=== PATIENT | female | born 1965 | race Hispanic/Latino ===

== ENCOUNTER 2017-03-20 07:39 | Day surgery (SDC) | payer OTHER ==
[2016-03-15 08:54] VITALS: BMI 28.3
[2017-03-20 08:04] VITALS: O2SAT 99
[2017-03-20] MEDS ORDERED: Propofol 10 mg/ml Inj (20 ML) ONE (08:36)
[2017-03-20] MEDS ORDERED: Ketamine 50 mg/ml Inj (10 ml) ONE (08:37)
[2017-03-20] MEDS ORDERED: Lactated Ringer's 500 ML IV SCH (08:45)
--- NOTE | 2017-03-20 08:45 | CP.SDSHP ---
Same Day Surgery H & P - History Proposed Procedure: colonoscopy Pre-Op Diagnosis: history of polyps - Allergies Allergies: Allergies No Known Allergies Allergy (Verified 03/15/16 08:53) - Physical Exam General Appearance: NAD Vital Signs: Vital Signs 03/20/17 03/20/17 07:57 08:26 Temperature 97.4 F L 97.4 F L Pulse Rate 64 64 Respiratory 19 19 Rate Blood Pressure 127/76 127/76 O2 Sat by Pulse 99 99 Oximetry Mental Status: Alert & Oriented x3 Neuro: WNL Heart: WNL Lungs: WNL GI: WNL - {Optional Preform as Required} Abdomen: WNL - Impression Pt. Evaluated Today:Candidate for Anesthesia & Procedure: Yes - Date & Time Date: 03/20/17 Time: 08:45 Short Stay Discharge - Short Stay Discharge Admitting Diagnosis/Reason for Visit: PERSONAL HISTORY OF COLONIC POLYPS Disposition: HOME/ ROUTINE
[2017-03-20 10:58] VITALS: TEMP 96.9
[2017-03-20 11:03] VITALS: BP 102/72; PULSE 58; RESP 16
== END 2017-03-20 10:50 | disposition home or self-care (01) ==
LOC: C.ENDO 07:39
PROVIDERS: ATTEND Internal Medicine Gastroenterology
DX: K63.5 Polyp of colon (principal); K57.30 Diverticulosis of large intestine without perforation or abscess without bleeding; K64.1 Second degree hemorrhoids
CPT/HCPCS: 45380; 45385; 84703; 88305; J2704; J7120